=== PATIENT | male | born 1985 | race Caucasian/White ===

== ENCOUNTER 2020-03-24 11:06 | Outpatient (CLI) | payer OTHER, SELFPAY ==
[2020-03-25 01:18] LABS: SARS-CoV-2 RNA PCR Negative
== END 2020-03-24 11:07 | disposition home or self-care (01) ==
LOC: CHSLAB 11:13
PROVIDERS: PCP Internal Medicine; Visit Provider Internal Medicine
DX: Z20.828 Contact with and (suspected) exposure to other viral communicable diseases (principal)
CPT/HCPCS: 87635; C9803; U0003

== ENCOUNTER 2021-05-28 09:41 | Outpatient (CLI) | payer OTHER, SELFPAY ==
[2021-05-28 10:31] LABS: SARS-CoV-2 Ag Negative (Negative)
[2021-05-28 11:10] LABS: SARS-CoV-2 RNA PCR Positive (Negative)
== END 2021-05-28 09:42 | disposition home or self-care (01) ==
LOC: CHSLAB 09:45
PROVIDERS: PCP Internal Medicine; Visit Provider Internal Medicine
DX: U07.1 COVID-19 (principal); J06.9 Acute upper respiratory infection, unspecified
CPT/HCPCS: 87426; C9803; U0003; U0005

== ENCOUNTER 2024-02-13 11:14 | Outpatient (CLI) | payer OTHER, SELFPAY ==
--- NOTE | ~2024-02-13 | XR_ITS ---
Clinical Indication: Hypertension PA and lateral views of the chest: Comparison: 02/20/2018 Findings: The lungs are clear, without evidence of focal consolidation or pleural effusion. Cardiome diastinal silhouette is within normal limits. Bones and soft tissues are unremarkable. Impression: Normal chest. Reviewed, dictated and finalized at location . Impression: Normal chest.
[2024-02-13 11:29] LABS: Basophils Absolute Auto 0.04 K/mm3 (0.00-0.10); Basophils Percent Auto 0.6 % (0.0-1.0); Eosinophils Absolute Auto 0.11 K/mm3 (0.02-0.50); Eosinophils Percent Auto 1.8 % (1.0-6.0); Hematocrit 41.4 % (40.0-54.0); Hemoglobin 13.7 g/dL (14.0-18.0); Immature Granulocyte Absolute 0.01 K/mm3 (0.00-0.00); Immature Granulocyte Percent A 0.2 % (0.0-0.0); Lymphocytes Absolute Auto 2.49 K/mm3 (1.10-4.50); Lymphocytes Percent Auto 40.2 % (18.0-42.0); Mean Corpuscular HGB Conc 33.1 g/dL (32-36); Mean Corpuscular Hemoglobin 29.8 pg (27.0-31.0); Mean Platelet Volume 10.1 fl (8.7-11.0); Monocytes Absolute Auto 0.54 K/mm3 (0.10-0.90); Monocytes Percent Auto 8.7 % (2.0-11.0); Neutrophils Absolute Auto 3.01 K/mm3 (1.70-7.20); Neutrophils Percent Auto 48.5 % (50.0-70.0); Platelet Count Result 280 K/mm3 (150-420); Red Cell Distribution Width 11.9 % (11.6-14.4); White Blood Count 6.2 K/mm3 (4.8-10.8)
--- NOTE | 2024-02-13 11:32 | ECG_ITS ---
Test Date: 2024-02-13 11:41:10 Measurements Intervals [place] Rate: 53 P: 62 UT: 143 QRS: 64 QRSD: 92 T: 49 QT: 409 QTc: 387 Interpretive Statements SINUS BRADYCARDIA WITH SINUS ARRHYTHMIA No previous ECG available for comparison Electronically Signed On 02-14-2024 11:57:47 CDT by Lianna Freeman M.D.
[2024-02-13 11:33] LABS: Add Urine Microscopic? NO; Appearance Urine Clear (Clear); Bilirubin Urine Negative (Negative); Blood Urine Trace-intact (Negative); Color Urine Light Yellow (Yellow); Glucose Urine UA Negative (Negative); Ketones Urine Negative (Negative); Leukocyte Esterase Ur Negative (Negative); Nitrate Urine Negative (Negative); Protein Urine Negative (Negative); Urobilinogen Urine 0.2 mg/dL (0.2-1.0)
[2024-02-13 12:27] LABS: Alanine Aminotransferase 29 U/L (16-63); Albumin Level 4.1 g/dL (3.4-5.0); Alkaline Phosphatase 61 U/L (46-116); Anion Gap 8 mmol/L (4-12); Aspartate Amino Transferase 15 U/L (15-37); Bilirubin,Total 0.4 mg/dL (0.00-1.00); Blood Urea Nitrogen 11 mg/dL (7-18); Carbon Dioxide 29 mmol/L (21-32); Chloride 102 mmol/L (98-108); Cholesterol 193 mg/dL (0-200); Estimated Glomerular Filt Rate > 60; Glucose 93 mg/dL (70-99); HDL Direct 52 mg/dL (40-60); LDL Cholesterol Calculated 123 mg/dL (<130); Osmolality Calculated 287 mOsm/kg (285-295); Potassium 4.4 mmol/L (3.5-5.1); Sodium 139 mmol/L (136-145); Thyroid Stimulating Hormone 1.21 uIU/mL (0.36-3.74); Total Protein 7.6 g/dL (6.4-8.2); Triglycerides 90 mg/dL (0-150)
== END 2024-02-13 11:15 | disposition home or self-care (01) ==
LOC: CHSLAB 11:17
PROVIDERS: PCP Internal Medicine; Visit Provider Internal Medicine
DX: Z00.00 Encounter for general adult medical examination without abnormal findings (principal); R03.0 Elevated blood-pressure reading, without diagnosis of hypertension; R00.1 Bradycardia, unspecified; I49.8 Other specified cardiac arrhythmias
CPT/HCPCS: 36415; 71046; 80053; 80061; 81003; 84443; 85025; 93005

== ENCOUNTER 2024-03-31 07:22 | Emergency (ER) | payer OTHER, SELFPAY ==
--- NOTE | ~2024-03-31 | CT_ITS ---
EXAMINATION: CT abdomen pelvis wo con DATE: 03/31/2024 08:28 INDICATION: Left flank pain and nausea for one day TECHNIQUE: Computed tomography (CT) of the abdomen and pelvis was performed without intravenous contr ast. Automated exposure control and iterative reconstruction technique were employed. Exam dose: 348 .48 mGy-cm total exam DLP. COMPARISON: None. FINDINGS: The lung bases are clear. Normal heart size. No pericardial or pleural effusion. The liver, gallbladder, bile ducts, pancreas, pancreatic duct and spleen are unremarkable. Normal morphology of the adrenal glands. There are multiple bilateral nonobstructing renal calculi. Distal left ureter approximately 3.2 x 4.5 mm calculus with associated mild left hydroureteronephrosi s. Normal caliber of the abdominal aorta. No intraperitoneal or retroperitoneal or pelvic mass lesion or adenopathy or ascites. The urinary bladder is relatively evacuated. The prostate gland and seminal vesicles are unremarkable . Normal appendix. No bowel obstruction or intraperitoneal free air. Small fat-containing umbilical hernia. Included skeletal structures are unremarkable. IMPRESSION: 3.2 x 4.5 mm distal left ureteral obstructing calculus with associated mild left hydrour eteronephrosis Bilateral nephrolithiasis Normal appendix Reviewed, dictated and finalized at [facility]. Reviewed, dictated and finalized at location [facility]. [facility]ER ADMINISTRATIVE IMPRESSION: 3.2 x 4.5 mm distal left ureteral obstructing calculus with associ ated mild left hydroureteronephrosis Bilateral nephrolithiasis Normal appendix
[2024-03-31 07:23] VITALS: BP 128/68; PULSE 85; RESP 18; TEMP 35.7; O2SAT 100
--- NOTE | 2024-03-31 07:26 | ED.ABDPAIN ---
HPI - Abdominal Pain General Chief Complaint: Abdominal Pain Stated Complaint: side pain Time Seen by Provider: 03/31/24 07:25 Source: patient Mode of arrival: ambulatory Limitations: no limitations History of Present Illness HPI narrative: Patient is a 39-year-old male with significant past medical history that presents today for flank pain. Patient has left-sided flank pain he states this started about 15 minutes ago when he woke up. He said the pain was very severe so he decided to come straight to the emergency department. He did not take ibuprofen or any [id number] medications To see If it would go away 1st. He denies any other symptoms. MD elicited complaint: flank pain Pertinent past history: none Onset (ago): minute(s) Pain Consistency: intermittent Location: L flank Severity: mild Pain scale (0-10): 2 Quality: cramping Radiation: none Migration to: no migration Exacerbating factors: nothing Relieving factors: nothing Associated symptoms: denies other symptoms Related Data Allergies Allergy/AdvReac Type Severity Reaction Status Date / Time No Known Allergies Allergy Verified 03/31/24 07:27 Review of Systems Review of Systems: All systems reviewed & are unremarkable except as noted in HPI and below Constitutional: Constitutional: Reports as per HPI Eyes: Eyes: Reports no additional eye complaints ENT: Reports system reviewed and no additional complaints, except as documented Cardiovascular: Cardiovascular: Reports no additional cardiovascular complaints Respiratory: Respiratory: Reports no additional respiratory complaints Gastrointestinal: Gastrointestinal: Reports no additional gastrointestinal complaints Genitourinary: Genitourinary: Reports no additional male genitourinary complaints Musculoskeletal: Musculoskeletal: Reports no additional musculoskeletal complaints Integumentary/Breasts: Skin/Breast: Reports system reviewed and no additional complaints, except as docu Neurologic: Reports system reviewed and no additional complaints, except as documented Psychiatric: Psychiatric: Reports no additional psychiatric complaints Endocrine: Endocrine: Reports no additional endocrine complaints Hematologic/Lymphatic: Hematologic/Lymphatic: Reports no additional hematologic/lymphatic complaints Allergic/Immunologic: Allergic/Immunologic: Reports no additional allergic/immunologic complaints Exam Const: General: healthy appearing Nutritional Appearance: well nourished Orientation/consciousness: patient oriented x3 HENMT: Head: normal to inspection Ears: external ears normal Face/Nose/Sinus: Normal external nose present Face and sinus: normal facial exam Mouth: Yes Normal oral and palatal mucosa present Teeth and gingiva: dentition normal Throat: posterior oropharynx normal Eyes: Conjunctivae: conjunctivae normal Pupils: Equal, round and reactive pupils present EOM: EOMs intact bilaterally Neck: Neck: normal visual inspection Chest: Chest palpation & inspection: normal inspection of the chest Resp: Effort & Inspection: normal respiratory effort Auscultation: clear to auscultation bilaterally Cardio: Rate: regular rate Rhythm: regular rhythm GI: GI Palp: Yes Soft to palpation Auscultation: normal bowel sounds : General: Yes bladder normal to palpation Back/Spine/Pelvis: Back: no CVA tenderness Skin: General skin exam: normal color Rashes: no rashes Wounds: no wounds Neuro: General: patient oriented x3 Extrem: General: normal to inspection Psych: Mental Status: mental status grossly normal Affect: normal affect Course Reevaluation(s) Reevaluation #1: CT scan showed a nonobstructing 3 x 4 mm calculus on the left side. Will give Flomax now and discharged home on Flomax and Toradol. Date: 03/31/24 Time: 08:41 Vital Signs Vital signs: Vital Signs Temperature 96.3 F L 03/31/24 07:23 Pulse Rate 85 03/31/24 07:23 Respiratory Rate 18 03/31/24 07:23 Blood Pressure 128/68 03/31/24 07:23 Pulse Oximetry 100 03/31/24 07:23 Oxygen Delivery Room Air 03/31/24 07:23 Temperature 96.3 F L 03/31/24 07:23 Pulse Rate 85 03/31/24 07:23 Respiratory Rate 18 03/31/24 07:23 Blood Pressure 128/68 03/31/24 07:23 Pulse Oximetry 100 03/31/24 07:23 Oxygen Delivery Room Air 03/31/24 07:23 MDM - Abdominal Pain MDM Narrative Medical decision making narrative: Patient has left-sided flank pain has no history of kidney stones. Could feel a depression but he has only had pain for last habitus. He is not taking he does see a lot of pain go away. He did just wake up may have slept wrong. Some ice people muscle. Will give him a shot of Toradol muscle relaxant. Wait and see the pain goes away. The pain is not aware will do CT the abdomen pelvis look for kidney stone. Will also do a UA to check for any blood in the urine. Differential Diagnosis Differential diagnosis: Likely calculus of kidney and other ( Muscle strain) Medical Records Attestation: I reviewed the patient's medical records. Lab Data Attestation: I reviewed the patient's lab results. Labs: Lab Results 03/31/24 Range/Units 07:26 Urine Color Red A (Yellow) Urine Appearance Cloudy A (Clear) Urine pH 6.0 (5.0-8.0) Ur Specific [place] 1.025 H (1.010-1.020) Urine Protein 1+ H (Negative) Urine Glucose (UA) Negative (Negative) Urine Ketones Negative (Negative) Ur Blood (Man) 3+ H (Negative) Urine Nitrate Negative (Negative) Urine Bilirubin Negative (Negative) Urine Urobilinogen 1.0 (0.2-1.0) mg/dL Ur Leukocyte Esterase Negative (Negative) Urine RBC >75 H (0-2) /hpf Urine WBC None seen (0-3) /hpf Ur Squamous Epith Cells Rare (Few) /hpf Urine Bacteria Trace (None) /hpf Imaging Data Radiologist's impression: ITS Impressions Abdomen/Pelvis CT 03/31/24 08:29 IMPRESSION: 3.2 x 4.5 mm distal left ureteral obstructing calculus with associated mild left hydroureteronephrosis Bilateral nephrolithiasis Normal appendix Discharge Plan Discharge Clinical Impression: Calculus of kidney Patient Disposition: Home, Self-Care Condition: Stable Instructions: Kidney Stones (ED) Additional Instructions: Take Flomax daily until stone has passed. Take Toradol up to 3 times a day for 3 days. Prescriptions: New tamsulosin [Flomax] 0.4 mg capsule 0.4 mg PO DAILY Qty: 14 0RF ketorolac 10 mg tablet 10 mg PO Q8H PRN (Reason: pain) 3 Days Qty: 9 0RF Follow-up/Referrals: UNKNOWN,DOCTOR [Non-Staff] -
[2024-03-31 07:33] LABS: Add Urine Microscopic? YES; Appearance Urine Cloudy (Clear); Bilirubin Urine Negative (Negative); Blood Urine 3+ (Negative); Color Urine Red (Yellow); Glucose Urine UA Negative (Negative); Ketones Urine Negative (Negative); Leukocyte Esterase Ur Negative (Negative); Nitrate Urine Negative (Negative); Protein Urine 1+ (Negative); Specific Grav Ur 1.025 (1.010-1.020)
[2024-03-31 07:36] LABS: Bacteria Urine Trace /hpf; RBC Urine >75 /hpf (0-2); Squamous Epithelial Cell Urine Rare /hpf (Few); WBC Urine None seen /hpf (0-3)
[2024-03-31] MEDS: CYCLOBENZAPRINE HCL 10 MG TABLET PO (07:36)
[2024-03-31] MEDS: KETOROLAC (*BKC) 60 MG/2 ML VIAL IM (07:36)
[2024-03-31] MEDS: TAMSULOSIN HCL 0.4 MG CAPSULE PO (08:52)
[2024-03-31 09:00] VITALS: BP 121/73; PULSE 74; RESP 18; TEMP 36.1; O2SAT 100
== END 2024-03-31 08:54 | disposition home or self-care (01) ==
PROVIDERS: Emergency Provider Family Medicine; PCP Internal Medicine
DX: N20.0 Calculus of kidney (principal)
CPT/HCPCS: 74176; 81001; 96374; 99284; A9270; J1885

== ENCOUNTER 2025-02-18 09:14 | Outpatient (CLI) | payer OTHER, SELFPAY ==
[2025-02-18 09:28] LABS: Add Urine Microscopic? NO; Appearance Urine Clear (Clear); Glucose Urine UA Negative (Negative); Leukocyte Esterase Ur Negative (Negative); Nitrate Urine Negative (Negative); Specific Grav Ur <= 1.005 (1.010-1.020)
[2025-02-18 09:29] LABS: Hematocrit 43.2 % (40.0-54.0); Hemoglobin 14.2 g/dL (14.0-18.0); Mean Corpuscular HGB Conc 32.9 g/dL (32-36); Mean Corpuscular Hemoglobin 29.6 pg (27.0-31.0); Mean Corpuscular Volume 90.0 fL (78.0-102.0); Platelet Count Result 305 K/mm3 (150-420); Red Blood Count 4.80 M/mm3 (4.70-6.10); White Blood Count 5.5 K/mm3 (4.8-10.8)
[2025-02-18 09:52] LABS: Alanine Aminotransferase 39 U/L (6-50); Albumin Level 5.0 g/dL (3.5-5.1); Alkaline Phosphatase 54 U/L (38-126); Anion Gap 8 mmol/L (4-12); Aspartate Amino Transferase 29 U/L (17-59); Bilirubin,Total 0.6 mg/dL (0.2-1.3); Blood Urea Nitrogen 16 mg/dL (9-20); Calcium 10.0 mg/dL (8.4-10.2); Carbon Dioxide 31 mmol/L (22-30); Chloride 102 mmol/L (98-107); Cholesterol 228 mg/dL (0-200); Estimated Glomerular Filt Rate > 60; Glucose 103 mg/dL (65-110); HDL Direct 71 mg/dL; Osmolality Calculated 293 mOsm/kg (285-295); Potassium 4.9 mmol/L (3.4-5.0); Sodium 141 mmol/L (137-145); Total Protein 9.8 g/dL (6.3-8.2); Triglycerides 97 mg/dL (<150)
[2025-02-18 10:21] LABS: Thyroid Stimulating Hormone 1.820 uIU/mL (0.465-4.680)
== END 2025-02-18 09:15 | disposition home or self-care (01) ==
LOC: CHSLAB 09:16
PROVIDERS: PCP Internal Medicine; Visit Provider Internal Medicine
DX: Z00.00 Encounter for general adult medical examination without abnormal findings (principal)
CPT/HCPCS: 36415; 80053; 80061; 81003; 84443; 85027